=== PATIENT | female | born 1975 | race Two or more races ===

== ENCOUNTER 2023-11-09 09:14 | Inpatient (IN) | payer MEDICAID ==
[~2023-11-09] VITALS: Ht 165.1 cm; Wt 76.2 kg
[2023-11-09] MEDS ORDERED: IOHEXOL-350 100 ML VIAL IV ONE (09:55)
[2023-11-09] MEDS ORDERED: CT SWABBABLE VALVE TRANS SET 1 EA INFUS.SET MC ONE (09:56)
[2023-11-09] MEDS ORDERED: IV NS 0.9% 250 ML IV ONE (09:56)
[2023-11-09 10:04] LABS: BASOPHILS % (AUTO) 0.6 % (0.0-2.0); EOSINOPHILS # (AUTO) 0.2 K/uL (0.0-0.7); EOSINOPHILS % (AUTO) 2.6 % (0.0-6.0); HEMATOCRIT 41 % (33-45); HEMOGLOBIN 13.6 g/dL (11.5-14.8); LYMPHOCYTES # (AUTO) 2.8 K/uL (0.8-4.8); LYMPHOCYTES % (AUTO) 47.2 % (20.0-44.0); MEAN CORPUSCULAR HEMOGLOBIN 29 PG (26.0-33.0); MEAN CORPUSCULAR HGB CONC 34 g/dl (31.0-36.0); MEAN CORPUSCULAR VOLUME 88 fL (82-100); MONOCYTES # (AUTO) 0.4 K/uL (0.1-1.30); MONOCYTES % (AUTO) 6.3 % (2.0-12.0); NEUTROPHILS # (AUTO) 2.5 K/uL (1.8-8.9); NEUTROPHILS % (AUTO) 43.3 % (43.0-81.0); PLATELET COUNT (AUTO) 289 K/uL (150-450); RED BLOOD CELL COUNT(AUTO) 4.64 MIL/uL (4.0-5.2); RED CELL DISTRIBUTION WIDTH 13.4 % (11.5-15.0); WHITE BLOOD COUNT (AUTO) 5.9 K/uL (4.3-11.0)
[2023-11-09 10:13] LABS: CALCIUM, SERUM 9.1 mg/dL (8.5-10.1); CARBON DIOXIDE 30 mmol/L (21-32); CHLORIDE 105 mmol/L (98-107); CREATININE 0.7 mg/dL (0.6-1.3); GLUCOSE 105 mg/dL (74-106); SODIUM SERUM 138 mmol/L (136-145); UREA NITROGEN, BLOOD 8 mg/dL (7-18)
[2023-11-09 10:17] LABS: INR 0.97 (0.91-1.10); PARTIAL THROMBOPLASTIN TIME 27.6 SEC (24.3-34.3); PROTHROMBIN TIME 10.3 SECS (9.2-11.1)
[2023-11-09 10:18] LABS: ALANINE AMINOTRANSFERASE 54 U/L (12-78); ALBUMIN 3.8 g/dL (3.4-5.0); ALKALINE PHOSPHATASE 77 U/L (46-116); ASPARTATE AMINOTRANSFERASE 27 U/L (15-37); BILIRUBIN,DIRECT 0.1 mg/dL (0.0-0.2); BILIRUBIN,TOTAL 0.3 mg/dL (0.2-1.0); TOTAL PROTEIN, SERUM 8.3 g/dL (6.4-8.2)
[2023-11-09 10:26] LABS: MAGNESIUM 2.1 mg/dL (1.8-2.4)
[2023-11-09 10:34] LABS: APPEARANCE,URINE Clear (CLEAR); BILIRUBIN,URINE Negative (NEGATIVE); BLOOD, URINE Negative Ery/uL (NEGATIVE); COLOR,URINE YELLOW (YELLOW); KETONES,URINE Negative (NEGATIVE); LEUKOCYTE ESTERASE ,URINE Negative (NEGATIVE); NITRITE, URINE Negative (NEGATIVE); PH,URINE 7.5 (5.0-8.0); PROTEIN,URINE Negative (NEGATIVE); UGLUCOSE Negative (NEGATIVE); UROBILINOGEN,URINE 0.2 EU/dL (0.2)
[2023-11-09] MEDS ORDERED: METOCLOPRAMIDE HCL 10 MG/2 ML VIAL ONE (10:38)
[2023-11-09] MEDS ORDERED: diphenhydrAMINE HCL 50 MG/ML VIAL ONE (10:38)
[2023-11-09 10:46] LABS: THYROID STIMULATING HORMONE 1.69 uIU/mL (0.358-3.74)
[2023-11-09] MEDS: diphenhydrAMINE HCL 50 MG/ML VIAL IV ONE (10:49)
[2023-11-09] MEDS: METOCLOPRAMIDE HCL 10 MG/2 ML VIAL IV ONE (10:49)
[2023-11-09 10:50] LABS: AMPHETAMINE, URINE NEGATIVE (NEGATIVE); BARBITURATE, URINE NEGATIVE (NEGATIVE); BENZODIAZEPINE, URINE NEGATIVE (NEGATIVE); CANNABINOID, URINE NEGATIVE (NEGATIVE); COCCAINE, URINE NEGATIVE (NEGATIVE); OPIATE, URINE NEGATIVE (NEGATIVE); PHENCYCLIDINE SCREEN,URINE NEGATIVE (NEGATIVE)
[2023-11-09] MEDS: IV NS 0.9% 1,000 ML BAG IV ONE (10:50)
[2023-11-09] MEDS ORDERED: ASPIRIN 325 MG TABLET ONE (12:42)
[2023-11-09] MEDS: ASPIRIN 325 MG TABLET PO ONE (12:43)
[2023-11-09 16:00] VITALS: BP 151/83; TEMP 98.2; O2SAT 99
[2023-11-09] MEDS ORDERED: MAGNESIUM HYDROXIDE 30 ML UDC PO PRN (17:00)
[2023-11-09] MEDS ORDERED: ONDANSETRON HCL/PF 4 MG/2 ML VIAL IVP PRN (17:00)
[2023-11-09] MEDS ORDERED: Z GUARD REMEDY 4 OZ OINT TP PRN (17:00)
[2023-11-09] MEDS: ATORVASTATIN 40 MG TABLET PO SCH (21:06)
[2023-11-09 23:00] VITALS: BP 139/80; TEMP 97.3; O2SAT 98
[2023-11-10] VITALS (7 sets, daily range): BP systolic 135–154; BP diastolic 81–89; TEMP 97.5–98.2; O2SAT 95–99
[2023-11-10] MEDS: ACETAMINOPHEN 325 MG TABLET PO PRN (04:28)
[2023-11-10 06:42] LABS: BASOPHILS % (AUTO) 0.7 % (0.0-2.0); EOSINOPHILS # (AUTO) 0.2 K/uL (0.0-0.7); EOSINOPHILS % (AUTO) 3.2 % (0.0-6.0); HEMATOCRIT 40 % (33-45); HEMOGLOBIN 13.1 g/dL (11.5-14.8); LYMPHOCYTES # (AUTO) 2.5 K/uL (0.8-4.8); LYMPHOCYTES % (AUTO) 44.7 % (20.0-44.0); MEAN CORPUSCULAR HEMOGLOBIN 29 PG (26.0-33.0); MEAN CORPUSCULAR HGB CONC 33 g/dl (31.0-36.0); MEAN CORPUSCULAR VOLUME 89 fL (82-100); MONOCYTES # (AUTO) 0.5 K/uL (0.1-1.30); MONOCYTES % (AUTO) 8.7 % (2.0-12.0); NEUTROPHILS # (AUTO) 2.4 K/uL (1.8-8.9); NEUTROPHILS % (AUTO) 42.7 % (43.0-81.0); PLATELET COUNT (AUTO) 267 K/uL (150-450); RED BLOOD CELL COUNT(AUTO) 4.49 MIL/uL (4.0-5.2); RED CELL DISTRIBUTION WIDTH 13.5 % (11.5-15.0); WHITE BLOOD COUNT (AUTO) 5.6 K/uL (4.3-11.0)
[2023-11-10 07:14] LABS: CALCIUM, SERUM 8.4 mg/dL (8.5-10.1); CREATININE 0.7 mg/dL (0.6-1.3); MAGNESIUM 2.2 mg/dL (1.8-2.4); PHOSPHORUS 3.4 mg/dL (2.5-4.9)
[2023-11-10] MEDS: ASPIRIN EC 81 MG TABLET.DR PO SCH (08:40)
[2023-11-10] MEDS: LORAZEPAM 0.5 MG TABLET PO ONE (11:55)
[2023-11-10 12:35] LABS: THYROID STIMULATING HORMONE 3.03 uIU/mL (0.358-3.74)
[2023-11-10] MEDS ORDERED: GADOTERATE MEGLUMINE 10 MMOL/20 ML VIAL IV ONE (15:29)
[2023-11-11] VITALS: BP 151/81; TEMP 97.9; O2SAT 97
[2023-11-11 04:45] VITALS: BP 127/72; TEMP 97.7; O2SAT 97
[2023-11-11 08:00] VITALS: BP 151/83; TEMP 98.1; O2SAT 97
[2023-11-11 08:08] LABS: FOLIC ACID 6.6 ng/mL (>3.0)
[2023-11-11] MEDS: CYANOCOBALAMIN 1,000 MCG/ML VIAL IM SCH (11:25)
[2023-11-11 20:36] VITALS: BP 150/90; TEMP 98.1; O2SAT 95
[2023-11-11 22:00] VITALS: BP_SYST 121; BP_SYST 133; BP_SYST 138; BP_DIAS 80; BP_DIAS 82; BP_DIAS 85
[2023-11-12 00:23] VITALS: BP 134/79; TEMP 97.9; O2SAT 93
[2023-11-12 04:22] VITALS: BP 123/74; TEMP 98.1; O2SAT 97
[2023-11-12 07:30] VITALS: BP 127/80; TEMP 98.1; O2SAT 98
[2023-11-12] MEDS ORDERED: ATOR40TA PO (09:43)
== END 2023-11-12 14:05 | disposition home or self-care (01) | DRG 54 ==
LOC: ER 09:17 → TELE 14:06
PROVIDERS: ADMIT Nurse Practitioner Family; ATTEND Nurse Practitioner Acute Care
DX: G43.109 Migraine with aura, not intractable, without status migrainosus (principal); G45.9 Transient cerebral ischemic attack, unspecified; I10 Essential (primary) hypertension; E78.5 Hyperlipidemia, unspecified; R20.0 Anesthesia of skin; R53.1 Weakness; Z90.49 Acquired absence of other specified parts of digestive tract; M54.12 Radiculopathy, cervical region
CPT/HCPCS: 36415; 70450-TC; 70490-TC; 70496-TC; 70498-TC; 70544-TC; 70553-TC; 71045-TC; 80048-TC; 80061-TC; 80076-TC; 82550-TC; 82607-TC; 83690-TC; 83735-TC; 83921; 84100-TC; 84443-TC; 84484-TC; 84702-TC; 85025-TC; 85730-TC; 92526; 92611-TC; 93307-TC; 93971-TC; 97110-TC; 97112-TC; 97116-TC; 97530-TC; 97535-TC; A9575; G0378; J1200; J2765; J3420; J7050; Q9967